=== PATIENT | female | born 1990 | race Caucasian/White ===

== ENCOUNTER 2017-03-31 09:17 | Emergency (ER) | payer BC, OTHER ==
[~2017-03-31] VITALS: Ht 157.5 cm; Wt 52.3 kg
[~2017-03-31 09:17] MED LIST: FERROUS SU325 MG/TAB PO; IBU600 MG PO; PERCOCET 325 MG1 TA2 PO; PRENATAL MVI PO; PRENATAL1 TA7 PO
[2017-03-31 09:21] VITALS: BP 121/72; PULSE 93; TEMP 97.7
== END 2017-03-31 14:15 | disposition other institution (70) ==
LOC: COL.ER 09:17
DX: S68.623A Partial traumatic transphalangeal amputation of left middle finger, initial encounter (principal); W31.82XA Contact with other commercial machinery, initial encounter
CPT/HCPCS: J0690

== ENCOUNTER 2018-05-10 07:05 | Inpatient (IN) | payer BC, MEDICAID ==
[2018-05-10] VITALS (30 sets, daily range): BP systolic 109–145; BP diastolic 60–94; PULSE 80–125; TEMP 97.8–98.3
[~2018-05-10] VITALS: Ht 160 cm; Wt 60.9 kg
[2018-05-10] MEDS ORDERED: FLINTSTONES1 CTB PO (07:22)
[2018-05-10 07:51] LABS: BASO % 0.5 % (0.0-2.0); EOS # 0.1 (0.0-0.7); EOS % 1.2 % (0-4.0); GRAN # 4.2 (1.4-6.5); GRAN % 53.9 % (42.2-75.2); HEMATOCRIT 39.4 % (37.0-47.0); HEMOGLOBIN 13.4 g/dl (12.5-16.0); LYMPH # 2.4 (1.2-3.4); LYMPH % 30.9 % (20.0-51.0); MEAN CELL VOLUME 91 fl (80.0-100.0); MEAN CORPUSCULAR HEMOGLOBIN 31 pg (27.0-31.0); MEAN CORPUSCULAR HGB CONC 34 g/dl (33.0-37.0); MEAN PLATELET VOLUME 10.4 fl (7.4-10.4); MONO # 0.9 (0.1-0.6); MONO % 12.2 % (1.7-9.3); PLATELET COUNT 213 K/mm3 (130-400); RED BLOOD COUNT 4.34 M/mm3 (4.10-5.30)
[2018-05-11 01:50] VITALS: BP 107/70; PULSE 85; TEMP 97.7
[2018-05-11] MEDS ORDERED: IBU600 MG PO (09:10)
[2018-05-11 09:25] VITALS: BP 118/64; PULSE 82; TEMP 98.8
== END 2018-05-11 15:30 | disposition home or self-care (01) | DRG 775 ==
LOC: OB 07:05 → LDR 07:05 → OB 15:10
PROVIDERS: Obstetrics & Gynecology
PROC: 10E0XZZ Delivery of Products of Conception, External Approach (ICD-10-PCS; principal; 2018-05-10)
PROC: 3E033VJ Introduction of Other Hormone into Peripheral Vein, Percutaneous Approach (ICD-10-PCS; 2018-05-10)
PROC: 10907ZC Drainage of Amniotic Fluid, Therapeutic from Products of Conception, Via Natural or Artificial Opening (ICD-10-PCS; 2018-05-10)
PROC: 0HQ9XZZ Repair Perineum Skin, External Approach (ICD-10-PCS; 2018-05-10)
DX: O41.03X0 Oligohydramnios, third trimester, not applicable or unspecified (principal); Z3A.38 38 weeks gestation of pregnancy; Z37.0 Single live birth; O70.0 First degree perineal laceration during delivery
CPT/HCPCS: J2590; J2795; J7120